=== PATIENT | female | born 1980 | race Hispanic/Latino ===

== ENCOUNTER 2018-02-17 13:05 | Emergency (ER) | payer OTHER ==
[~2018-02-17] VITALS: Ht 172.7 cm; Wt 136.1 kg
--- OUTSIDE RECORDS SUMMARY | 2018-02-17 13:08 | XMS REPORT ---
Author Author [facility] Address Unknown Phone Unavailable Care Team Providers Care Clinical Laboratory Assistant Name Role Phone NADIYA WYATT Unavailable Unavailable Problems This patient has no known problems. Allergies, Adverse Reactions, Alerts This patient has no known allergies or adverse reactions. Medications This patient has no known medications. Results Test Description Test Time Test Comments Text Results Atomic Results Result Comments SCREEN, URINE 2016-09-26 17:01:00 TEST URINE (BEAKER) (test wvta=061) Negative BASIC METABOLIC [id number] 16:14:00* Test Item Value Reference Range Comments SODIUM (BEAKER) (test ybhb=403) 138 meq/L 135-148 POTASSIUM (BEAKER) (test exug=875) 3.8 meq/L 3.5-5.5 CHLORIDE (BEAKER) (test umuf=859) 100 meq/L 98-106 CO2 (BEAKER) (test vngd=016) 26 meq/L 20-31 BLOOD UREA NITROGEN (BEAKER) (test hjzb=708) 14 mg/dL 10-26 CREATININE (BEAKER) (test jamg=399) 0.70 mg/dL 0.50-1.20 GLUCOSE RANDOM (BEAKER) (test jlhp=351) 105 mg/dL 70-110 CALCIUM (BEAKER) (test itrc=310) 9.7 mg/dL 8.5-10.5 EGFR (BEAKER) (test xfos=9077) mL/min/1.73 sq m INSUFFICIENT CLINICAL DATA TO CALCULATE ESTIMATED GFR. CBC W/PLT COUNT & AUTO [id number] 15:45:00* Test Item Value Reference Range Comments WHITE BLOOD CELL COUNT (BEAKER) (test faoi=802) 10.5 K/ L 4.0-10.0 RED BLOOD CELL COUNT (BEAKER) (test vayr=034) 4.68 M/ L 4.00-5.00 HEMOGLOBIN (BEAKER) (test ostn=439) 13.5 GM/DL 12.0-15.0 HEMATOCRIT (BEAKER) (test tcqb=719) 39.8 % 36.0-45.0 MEAN CORPUSCULAR VOLUME (BEAKER) (test fitx=850) 84.9 fL 82.0-99.0 MEAN CORPUSCULAR HEMOGLOBIN (BEAKER) (test kixp=662) 28.8 pg 27.0-33.0 MEAN CORPUSCULAR HEMOGLOBIN CONC (BEAKER) (test qwxo=564) 33.9 GM/DL 32.0-36.0 RED CELL DISTRIBUTION WIDTH (BEAKER) (test gxec=570) 13.9 % 12.0-15.0 PLATELET COUNT (BEAKER) (test muyg=579) 339 K/CU MM 150-430 MEAN PLATELET VOLUME (BEAKER) (test step=569) 6.9 fL 6.5-10.5 NUCLEATED RED BLOOD CELLS (BEAKER) (test xgpw=759) 0 /100 WBC 0-0 NEUTROPHILS RELATIVE PERCENT (BEAKER) (test pbyt=119) 72 % LYMPHOCYTES RELATIVE PERCENT (BEAKER) (test rabg=768) 20 % MONOCYTES RELATIVE PERCENT (BEAKER) (test orwa=464) 6 % EOSINOPHILS RELATIVE PERCENT (BEAKER) (test tivh=414) 2 % BASOPHILS RELATIVE PERCENT (BEAKER) (test ttnh=227) 0 % NEUTROPHILS ABSOLUTE COUNT (BEAKER) (test ueip=766) 7.60 K/ L 1.80-8.00 LYMPHOCYTES ABSOLUTE COUNT (BEAKER) (test duvt=550) 2.10 K/ L 1.48-4.50 MONOCYTES ABSOLUTE COUNT (BEAKER) (test emfm=214) 0.60 K/ L 0.00-1.30 EOSINOPHILS ABSOLUTE COUNT (BEAKER) (test tywb=708) 0.20 K/ L 0.00-0.50 BASOPHILS ABSOLUTE COUNT (BEAKER) (test iyql=527) 0.00 K/ L 0.00-0.20
--- OUTSIDE RECORDS SUMMARY | 2018-02-17 13:08 | XMS REPORT | Continuity of Care Document ---
Author Author Clotilde regalado Organization Interface Address Unknown Phone Unavailable Problems Problem Status Onset Date Classification Date Reported Comments Source Medications Medication Details Route Status Patient Instructions Ordering Provider Order Date Source Allergies, Adverse Reactions, Alerts Substance Category Reaction Severity Reaction type Status Date Reported Comments Source Immunizations Immunization Date Given Site Status Last Updated Comments Source Results Order Name Results Value Reference Range Date Interpretation Comments Source Chest 2 views DX Chest 2 views DX Study: Two-view chest History: Cough Comments: The trachea is midline. The cardiomediastinal silhouette is normal in size. Right lung is clear. Mild interstitial opacities in the left lower lobe suggesting pneumonia. No pleural effusions or pneumothorax. Impression: Mild interstitial opacities in the left lower lobe suggesting pneumonia. 11/07/2016 - - Read by: Meli Schmitt MD Dictated Date/time: 11/07/16 20:02 Electronically Signed by: Meli Schmitt MD 11/07/16 20:05 FINAL REPORT Clotilde Regalado Vital Signs Vital Sign Value Date Comments Source Encounters Location Location Details Encounter Type Encounter Number Reason For Visit Attending Provider ADM Date DC Date Status Source Outpatient [id number] [facility] 11/07/2016 Active Clotilde Regalado Procedures Procedure Code Date Perfomer Comments Source
--- OUTSIDE RECORDS SUMMARY | 2018-02-17 13:08 | XMS REPORT | Clinical Summary ---
Author Author [facility] Address Unknown Phone Unavailable Care Team Providers Care Special Education Paraeducator Name Role Phone MookieBernard PCP Allergies Comments Active Allergy Reactions Severity Noted Date Latex 09/26/2016 Medications End Date Status Medication Sig Dispensed Refills Start Date Active ibuprofen (ADVIL,MOTRIN) Take 1 tablet 20 tablet 0 600 MG tablet (600 mg 7 total) by mouth every 6 (six) hours as needed for Pain (take with food) for up to 20 doses. Active losartan (COZAAR) 50 MG Take 50 mg by 0 tablet mouth daily. Active Problems Not on file Social History Date Tobacco Use Types Packs/Day Years Used Never Smoker Alcohol Use Drinks/Week oz/Week Comments No Sex Assigned at Date Recorded Not on file Industry Job Start Date Occupation Not on file Not on file Not on file Travel End Travel History Travel Start No recent travel history available. Last Filed Vital Signs Not on file Plan of Treatment Not on file Results Not on fileafter 02/16/2017 Insurance Payer Benefit Subscriber ID Type Phone Address Plan / Group [facility] CARE POS SELECT CHOICE
[2018-02-17] MEDS ORDERED: LIDOCAINE 1% 5ML-MPF INJ ONE (13:15)
[2018-02-17] MEDS ORDERED: CLINDAMYCIN PHOS 600 MG/ 4 ML VIAL IM ONE (13:45)
[2018-02-17] MEDS ORDERED: HYDROCODONE/APAP 5MG-325MG TAB PO ONE (14:00)
== END 2018-02-17 16:48 | disposition home or self-care (01) ==
LOC: FSED 13:05
DX: L02.214 Cutaneous abscess of groin (principal); I10 Essential (primary) hypertension
CPT/HCPCS: 10061; 99284